=== PATIENT | male | born 1945 | race Caucasian/White ===

== ENCOUNTER → 2021-10-24 | Outpatient (CLI) | payer MEDICARE ==
[~2021-10-24] MED LIST: IOPAMIDOL 370 MG/ML 200 ML INFUS..BTL INJ ONE; SODIUM CHLORIDE 0.9% 100 ML ONE
[2021-10-24 14:45] LABS: CREATININE, SERUM 0.77 mg/dL (0.72-1.25)
== END ==
LOC: CT 13:29
PROVIDERS: ATTEND Internal Medicine Interventional Cardiology
DX: I48.91 Unspecified atrial fibrillation (principal); R07.9 Chest pain, unspecified; I28.8 Other diseases of pulmonary vessels; I25.10 Atherosclerotic heart disease of native coronary artery without angina pectoris
CPT/HCPCS: 36415; 71275; 82565; 84520; J7050; Q9967